=== PATIENT | female | born 2000 | race Caucasian/White ===

== ENCOUNTER 2023-11-17 08:00 | Inpatient (IN) | payer OTHER ==
[~2023-11-17] VITALS: Ht 172.7 cm; Wt 75.0 kg
[2023-11-19] VITALS (14 sets, daily range): BP systolic 90–132; BP diastolic 57–84; PULSE 59–83; TEMP 98.2
[2023-11-19] MEDS ORDERED: LR 1,000 ML IV SCH (19:00)
[2023-11-19] MEDS ORDERED: miSOPROStol 25 MCG (1/4th of 100 MCG) TAB VG ONE (19:00)
[2023-11-19] MEDS ORDERED: LR & Oxytocin 500 ML IV SCH (19:00)
[2023-11-19] MEDS ORDERED: miSOPROStol 25 MCG (1/4th of 100 MCG) TAB VG SCH (19:00)
[2023-11-19] MEDS ORDERED: Terbutaline 1 MG/ML 1 ML AMP SQ PRN (19:00)
--- NOTE | 2023-11-19 19:10 | NUR ---
PT TO UNIT AMBULATORY WITH SPOUSE FOR SCHEDULED CYTOTEC INDUCTION. PT IS A G1L0 AT 40.2 WEEKS TODAY. PT ORIENTED TO ROOM, CHANGED INTO GOWN. EFMX2 APPLIED, VS OBTAINED.
[2023-11-19 20:28] LABS: BASO # 0.1 K/mm3 (0.0-0.2); BASO % 0.5 % (0.0-2.0); EOS # 0.1 K/mm3 (0.0-0.7); EOS % 0.7 % (0.0-4.0); GRAN # 6.4 K/mm3 (1.4-6.5); GRAN % 66.9 % (42.2-75.2); HEMOGLOBIN 11.2 g/dl (12.5-16.0); LYMPH # 2.3 K/mm3 (1.2-3.4); LYMPH % 23.9 % (20.0-51.0); MEAN CELL VOLUME 86 fl (80.0-100.0); MEAN CORPUSCULAR HEMOGLOBIN 30 pg (27-31); MEAN CORPUSCULAR HGB CONC 35 g/dl (33.0-37.0); MEAN PLATELET VOLUME 11.7 fl (7.4-10.4); MONO # 0.7 K/mm3 (0.1-0.6); MONO % 7.2 % (1.7-9.3); PLATELET COUNT 203 K/mm3 (130-400); RED BLOOD COUNT 3.73 M/mm3 (4.10-5.30); REDCELL DISTRIBUTION WIDTH-CV 11.6 % (11.5-14.5)
[2023-11-19] MEDS ORDERED: PRENATAL TABLET PO (20:39)
[2023-11-19] MEDS ORDERED: ROPivacaine PF 0.2% 200 ML IV ONE (23:21)
--- NOTE | 2023-11-19 23:50 | NUR ---
2325- PT SITTING AT SIDE OF BED FOR EPIDURAL PLACEMENT. KAREY DAVILA IN ROOM FOR EPIDURAL PLACEMENT. RISKS AND BENEFITS DISCUSSED, PT OPTS FOR EPIDURAL. BP CUFF SET TO EVERY 5 MINUTES, PULSE OX IN PLACE. 2338- TEST DOSE GIVEN BY KAREY DAVILA. PT TOLERATED WELL. 2350- PT REPOSITIONED TO SEMIFOWLERS FOLLOWING EPIDURAL.
[2023-11-20] VITALS (32 sets, daily range): BP systolic 97–132; BP diastolic 55–91; PULSE 51–111; TEMP 98–98.8
[2023-11-20] MEDS ORDERED: Ondansetron 4 MG/2 ML VIAL IV PRN (00:15)
[2023-11-20] MEDS ORDERED: ePHEDrine 50 MG/10 ML VIAL IV PRN (00:15)
[2023-11-20] MEDS ORDERED: diphenhydrAMINE 25 MG CAP PO PRN (00:15)
[2023-11-20] MEDS ORDERED: diphenhydrAMINE 50 MG/ML 1 ML VIAL IV PRN (00:15)
[2023-11-20] MEDS ORDERED: Naloxone 0.4 MG/ML VIAL IV PRN ×2 (00:15→06:30)
--- NOTE | 2023-11-20 05:00 | NUR ---
0442- SVE OF COMPLETE, PT PERFORMS PRACTICE PUSH WITH THIS NURSE. PT PUSHING WELL. 0447- CRANDALL DC'D, 400MLS URINE OUT. 0553- PT RESUMES PUSHING WITH THIS NURSE.
--- NOTE | 2023-11-20 05:10 | NUR ---
0500- PT STATES SHE IS FEELING LIGHTHEADED. HEAD OF BED DOWN, OFFERED COLD TOWEL AND FAN BUT PT DECLINED. PUSHING PAUSED UNTIL PT STATES SHE FEELS BETTER. 0502- PT CONTINUES TO STATES FEELING LIGHTHEADED. O2 APPLIED VIA NON-REBREATHER AT 10L. 0510- PT STATES THAT SHE THE OXYGEN TO HELPFUL, O2 REMAINS IN PLACE. PT RESUMES PUSHING WITH THIS NURSE.
--- NOTE | 2023-11-20 06:00 | NUR ---
0529- DR. RAMÍREZ IN ROOM FOR DELIVERY. BED BROKEN DOWN AND PT CONTINUES TO PUSH WITH DR. RAMÍREZ. 0543- SPONTANEOUS VAGINAL DELIVERY OF VIABLE BABY GIRL. SPONTANEOUS CRY NOTED, BABY TO MOTHER'S ABDOMEN. CORD CLAMPED BY DR. RAMÍREZ AND CUT BY FOB. BABY CARES ASSUMED BY Dilshad ANGEL RN. 0549- SPONTANEOUS DELIVERY OF INTACT PLACENTA THROUGH 2ND DEGREE LACERATION. PITOCIN STARTED AT 333ML/HR PER PROTOCOL. BEGINS REPAIR OF 2ND DEGREE PERINEAL LACERATION. 0600- RECOVERY STARTED.
[2023-11-20] MEDS ORDERED: Magnes Hydrox (MOM) 80 MG/ML 30 ML CUP PO PRN (06:30)
[2023-11-20] MEDS ORDERED: Ibuprofen 800 MG TAB PO SCH (06:30)
[2023-11-20] MEDS ORDERED: Measles/Mumps/Rubella Virus Vaccine Live w Diluent 0.5 ML VIAL SQ SCH (06:30)
[2023-11-20] MEDS ORDERED: Loratadine 10 MG TAB PO PRN (06:30)
[2023-11-20] MEDS ORDERED: Mag/Al Hydrox/Simeth Susp 30 ML CUP PO PRN (06:30)
[2023-11-20] MEDS ORDERED: Phenylephrine/Mineral Oil/Petrolatum 57 GM TUBE RC PRN (06:30)
[2023-11-20] MEDS ORDERED: Witch Hazel 50% Pads Bulk TUB TP PRN (06:30)
[2023-11-20] MEDS ORDERED: Acetaminophen 500 MG TAB PO SCH (06:30)
[2023-11-20] MEDS ORDERED: Sennosides/Docusate 8.6-50 MG TAB PO SCH (08:00)
--- NOTE | 2023-11-20 08:40 | NUR ---
PT UP TO RESTROOM, UNABLE TO VOID AT THIS TIME, HECTOR CARE PROVIDED, GOWN CHANGED. PT IN STABLE CONDITION, TRANSFERRED TO ROOM 208 ACCOMPANIED BY FOB AND INFANT.
[2023-11-20] MEDS ORDERED: Influenza Virus Vaccine, Trivalent '24-25 0.5 ML ONCE TODAY IM ONE (10:15)
[2023-11-20] MEDS ORDERED: traZODone 50 MG TAB PO PRN (21:00)
[2023-11-21 00:11] VITALS: BP 119/62; PULSE 55; TEMP 98
[2023-11-21 05:35] VITALS: BP 93/59; PULSE 55; TEMP 97.9
[2023-11-21 07:29] VITALS: BP 95/64; PULSE 65; TEMP 98.2
[2023-11-21] MEDS ORDERED: Influenza Virus Vaccine, Trivalent '24-25 0.5 ML ONCE TODAY IM ONE (10:45)
[2023-11-21] MEDS ORDERED: IBU800 M1 PO (10:54)
== END 2023-11-21 13:20 | disposition home or self-care (01) | DRG 807 ==
LOC: OB 11-18 07:59 → LDR 11-19 19:03 → OB 11-20 08:47
PROVIDERS: ADMIT Student in an Organized Health Care Education/Training Program
PROC: 10E0XZZ Delivery of Products of Conception, External Approach (ICD-10-PCS; principal; 2023-11-20)
PROC: 0KQM0ZZ Repair Perineum Muscle, Open Approach (ICD-10-PCS; 2023-11-20)
PROC: 3E0P7VZ Introduction of Hormone into Female Reproductive, Via Natural or Artificial Opening (ICD-10-PCS; 2023-11-20)
PROC: 3E033VJ Introduction of Other Hormone into Peripheral Vein, Percutaneous Approach (ICD-10-PCS; 2023-11-20)
DX: O48.0 Post-term pregnancy (principal); Z37.0 Single live birth; O70.1 Second degree perineal laceration during delivery; Z3A.40 40 weeks gestation of pregnancy
CPT/HCPCS: J2405; J2590; J2795; J7120